=== PATIENT | female | born 1935 | race Caucasian/White ===

== ENCOUNTER → 2017-06-24 | Outpatient (CLI) | payer MEDICARE, BC ==
[~2017-06-24] MED LIST: ALDACTAZIDE 251 TAB PO; ALDACTONE 25MG25 MG PO; AMARYL 2MG TABLE2 MG PO; AMIODARONE 200200 MG PO; ASPIRIN 81MG TA81 MG PO; ATIVAN GENERIC0.5 MG PO; ATIVAN0.5 MG PO; CARTIA XT180 M1 PO; CLONIDINE 0.2M0.2 MG PO; CLONIDINE HCL0.1 M1 PO; COUMADIN 2.5MG2.5 MG PO; COUMADIN 2MG TAB2 MG PO; COUMADIN2 MG PO; D-10001 TAB PO; FEMARA2.5 MG; FUROSEMIDE 40MG40 M1 PO; GLIMEPIRIDE 2MG2 MG PO; GLIMEPIRIDE2 MG PO; Isosorbide Mono30 MG PO; LANOXIN0.125 MG PO; LANSOPRAZOLE30 MG PO; LASIX40 MG PO; LEVOTHYROXIN0.075 M2 PO; LIPITOR20 M1 PO; LOPRESSOR 50 MG50 MG PO; LORATADINE 10MG10 M1 PO; LOSARTAN POTAS100 MG PO; LOTREL 10 MG-201 CAP PO; METFORMIN 500M500 M1 PO; METFORMIN500 MG PO; METOPROLOL25 MG; METOPROLOL50 MG PO; NEXIUM20 MG PO; NITROSTAT 0.4M0.4 MG SL; POTASSIUM CHLO10 ME3 PO; PRESERVISION A1 EACH PO; PREVACID 30MG C30 M1 PO; PROPAFENONE HC225 MG PO; TOPROL XL 50MG50 MG PO; TUSSIGON 1.5 MG1 TAB; TYLENOL 325MG325 MG PO; VYTORIN 10 MG-41 TAB PO; WARFARIN SOD5 MG PO; ZEBETA10 MG PO; ZOLPIDEM 10MG T10 MG PO
--- NOTE | 2017-06-24 12:37 | RADIOLOGY REPORT PS360 ---
CTA-CHEST HISTORY: SOB, HX OF PE, SOB POST OP Recent right endarterectomy short of breath now. Patient reports possible contrast allergy although this was premedicated by Dr. mark well with prednisone Benadryl, Tagamet or Zantac. No problems with contrast today Patient Age: 81 years: Female Ordering Physician: Haider Walters MD TECHNIQUE: Helical CT scanning performed the chest following 60 cc [id number] followed by 40 and L of normal saline. Sagittal & coronal thick slab MIPP images performed on independent workstation COMPARISON :No previous CT chest studies only two-view chest June 13, 2017 utilized. FINDINGS Good quality study. No evidence of pulmonary embolism. Pulmonary arteries are nicely visualized throughout. Aorta appears normal caliber no aneurysm. Minimal atheroscleroticcalcifications at aortic arch. And descending aortaAlso calcification at right coronary artery origin. Also calcification or stent Mediastinum appears satisfactory otherwise with no adenopathy no hilar no mediastinal mass LUNG wilkinson: There are a few small patchy areas of infiltrate at the right upper lobe. Although subtle minimal leads are noted associated with some perhaps mild airway thickening in these regions. May reflect some very minor patchy areas of minimal pneumonic infiltrate. Focal area most likely pleural parenchymal scarring/reactive change just anterior to a hypertrophic costovertebral junction, (axial images 14-19) as seen at the posterior margin superior segment right lower lobe Vessels to this region appear normal The patient has a diffusely inhomogeneous thyroid with generous size left lobe. Possible multinodular changes with left lobe larger than right. Suggest thyroid ultrasound and workup. 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 . Degenerative changes with anterior marginal osteophytes throughout T-spine. No acute findings here. No paraspinal mass. Degenerative facet changes. No pleural effusions are evident. The blunting of the CP angles appears reflect some minor chronic pleural and parenchymal changes at the right CP angle. Actually this feature seems to be less evident than on the recent 06/13/2017 and there may have been interval pleural effusions which is since resolved. No evidence CHF on today's study IMPRESSION: 1. No evidence of pulmonary embolism. Good quality study/Good visualization of pulmonary arteries throughout 2. Lungs with mild chronic changes. . Mild dependent atelectasis. 3. There are a few small patchy areas of subtle infiltrate at the right right upper lobe. Reflect very subtle areas pneumonitis. 4. No pleural effusions . CP angles appear sharp are better defined today's CT study vs recent chest film. 5..Minimal coronary artery calcification 5. Mild enlarged, inhomogeneous thyroid incidentally noted. Warrants correlation with thyroid function & consider thyroid ultrasound to further evaluate
== END ==
LOC: RAD 10:21
DX: R91.8 Other nonspecific abnormal finding of lung field (principal); R06.02 Shortness of breath; Z86.711 Personal history of pulmonary embolism
CPT/HCPCS: Q9967

== ENCOUNTER 2017-07-04 12:43 | Outpatient (CLI) | payer MEDICARE, BC | END 2017-07-04 15:03 | LOC: ACC 12:43 | DX: I48.91 Unspecified atrial fibrillation (principal); Z79.01 Long term (current) use of anticoagulants; Z51.81 Encounter for therapeutic drug level monitoring | CPT/HCPCS: G0463 ==

== ENCOUNTER 2017-07-27 12:33 | Outpatient (CLI) | payer MEDICARE, BC | END 2017-07-27 15:03 | LOC: ACC 12:33 | DX: I48.91 Unspecified atrial fibrillation (principal); Z79.01 Long term (current) use of anticoagulants; Z51.81 Encounter for therapeutic drug level monitoring | CPT/HCPCS: G0463 ==

== ENCOUNTER 2017-08-15 13:34 | Outpatient (CLI) | payer MEDICARE, BC | END 2017-08-15 13:58 | LOC: ACC 13:34 | DX: I48.91 Unspecified atrial fibrillation (principal); Z79.01 Long term (current) use of anticoagulants; Z51.81 Encounter for therapeutic drug level monitoring | CPT/HCPCS: G0463 ==

== ENCOUNTER 2017-09-05 13:22 | Outpatient (CLI) | payer MEDICARE, BC | END 2017-09-05 16:06 | LOC: ACC 13:22 | DX: I48.91 Unspecified atrial fibrillation (principal); Z79.01 Long term (current) use of anticoagulants; Z51.81 Encounter for therapeutic drug level monitoring | CPT/HCPCS: G0463 ==

== ENCOUNTER 2017-10-03 12:35 | Outpatient (CLI) | payer MEDICARE, BC ==
[~2017-10-03 12:35] MED LIST changes: -CARTIA XT180 M1 PO; +CARTIA XT240 MG PO; +CETIRIZINE HCL10 MG PO; -LORATADINE 10MG10 M1 PO
[2017-10-08] MEDS ORDERED: BUMETANIDE2 MG PO (15:08)
[2017-10-09] MEDS ORDERED: BREO ELLIPTA1 POW IH (10:52)
[2017-10-09] MEDS ORDERED: INCRUSE EL62.5 MCG/A IH (10:54)
[2017-10-11] MEDS ORDERED: ENTRESTO 49 MG1 EACH PO (08:34)
== END 2017-10-03 16:28 ==
LOC: ACC 12:35
DX: I48.91 Unspecified atrial fibrillation (principal); Z79.01 Long term (current) use of anticoagulants; Z51.81 Encounter for therapeutic drug level monitoring
CPT/HCPCS: G0463